=== PATIENT | male | born 1975 | race Asian ===

== ENCOUNTER 2022-07-01 13:00 | Emergency (ER) | payer BC ==
[~2022-07-01] VITALS: Ht 180.3 cm; Wt 74.8 kg
--- NOTE | 2022-07-01 13:19 | NUR ---
abdominal pain, started this morning - came to ER for evaluation.
--- NOTE | 2022-07-01 14:10 | NUR ---
BLOOD DRAWN AND SENT TO LAB.
[2022-07-01] MEDS ORDERED: KETOROLAC TROMETHAMINE 15 MG/ML VIAL ONE (14:11)
--- NOTE | 2022-07-01 14:15 | NUR ---
URINE SAMPLE SENT TO LAB
[2022-07-01] MEDS ORDERED: KETOROLAC TROMETHAMINE INJ 30 MG/ML VIAL IV ONE (14:30)
--- NOTE | 2022-07-01 14:30 | NUR ---
PATIENT TAKEN TO CT VIA [facility]PHONSO
[2022-07-01 14:40] LABS: BASOPHILS % (AUTO) 0.1 % (0.0-2.0); EOSINOPHILS % (AUTO) 0.5 % (0.0-6.0); HEMATOCRIT 43 % (39-51); LYMPHOCYTES # (AUTO) 0.5 K/uL (0.8-4.8); LYMPHOCYTES % (AUTO) 4.4 % (20.0-44.0); MEAN CORPUSCULAR HGB CONC 33 g/dl (31.0-36.0); MEAN CORPUSCULAR VOLUME 95 fL (80-96); MONOCYTES # (AUTO) 0.5 K/uL (0.1-1.30); MONOCYTES % (AUTO) 4.7 % (2.0-12.0); NEUTROPHILS # (AUTO) 10.2 K/uL (1.8-8.9); NEUTROPHILS % (AUTO) 90.3 % (43.0-81.0); PLATELET COUNT (AUTO) 233 K/uL (150-450); RED BLOOD CELL COUNT(AUTO) 4.47 MIL/uL (4.5-6.0); WHITE BLOOD COUNT (AUTO) 11.3 K/uL (4.3-11.0)
[2022-07-01 14:54] LABS: CALCIUM, SERUM 9.6 mg/dL (8.5-10.1); CREATININE 1.9 mg/dL (0.6-1.3); POTASSIUM 4.9 mmol/L (3.5-5.1)
[2022-07-01 15:06] LABS: ALBUMIN 4.6 g/dL (3.4-5.0); BILIRUBIN,DIRECT 0.2 mg/dL (0.0-0.2); BILIRUBIN,TOTAL 0.6 mg/dL (0.2-1.0); TOTAL PROTEIN, SERUM 7.6 g/dL (6.4-8.2)
[2022-07-01] MEDS ORDERED: IBUP-1957 PO (16:05)
[2022-07-01] MEDS ORDERED: TAMS-12 PO (16:05)
[2022-07-01] MEDS ORDERED: ONDA4TAB11 PO (16:06)
--- NOTE | 2022-07-01 16:16 | NUR ---
IV removed. Catheter intact and site benign. Pressure and 4x4 applied to site. No bleeding noted.Patient discharged to home in stable condition. Written and verbal after care instructions given. Patient verbalizes understanding of instruction.
[2022-07-01 16:20] VITALS: BP 115/70
[2022-07-01 19:03] LABS: BILIRUBIN,URINE NEGATIVE (NEGATIVE); COLOR,URINE YELLOW (YELLOW); LEUKOCYTE ESTERASE ,URINE NEGATIVE (NEGATIVE); NITRITE, URINE NEGATIVE (NEGATIVE); PROTEIN,URINE NEGATIVE (NEGATIVE); UGLUCOSE >=1000 mg/dL (NEGATIVE); UROBILINOGEN,URINE 0.2 EU/dL (0.2)
[2022-07-01 19:11] LABS: BACTERIA,URINE Rare /HPF (None Seen); RBC,URINE 0-2 /HPF (0-2); SQUAMOUS EPITHELIAL CELL,UR Few /HPF (None Seen); WBC,URINE 0-2 /HPF (0-3)
== END 2022-07-01 16:16 | disposition home or self-care (01) ==
LOC: ER 13:10
DX: N20.0 Calculus of kidney (principal); R10.9 Unspecified abdominal pain; I10 Essential (primary) hypertension; E11.9 Type 2 diabetes mellitus without complications; Z79.899 Other long term (current) drug therapy
CPT/HCPCS: 99285; 74176; 96374; 93005; 85025; 80048; 83690; 80076; 81001; 36415; J1885